=== PATIENT | male | born 1990 | race Hispanic/Latino ===

== ENCOUNTER 2019-06-10 11:47 | Emergency (ER) | payer BC ==
[2019-06-10 13:21] LABS: Protime INR 1.12
--- NOTE | 2019-06-10 13:27 | RAD REPORT ---
EXAM DESCRIPTION: Lai Single View06/10/2019 1:15 pm CLINICAL HISTORY: Chest pain COMPARISON: none FINDINGS: The lungs appear clear of acute infiltrate. The heart is normal size IMPRESSION: No acute abnormalities displayed
[2019-06-10 13:46] LABS: ALT/SGPT 21 U/L (12-78); AST/SGOT 12 U/L (15-37); Albumin 4.1 g/dL (3.4-5.0); Alkaline Phosphatase 100 U/L (45-117); BUN Blood Urea Nitrogen 18 mg/dL (7-18); Bicarbonate 30 mmol/L (21-32); Bilirubin Direct 0.1 mg/dL (0-0.2); Bilirubin Total 0.4 mg/dL (0.2-1.0); Glucose Level 90 mg/dL (74-106); Magnesium 2.1 mg/dL (1.8-2.4); Potassium 4.1 mmol/L (3.5-5.1); Protein, Total 7.3 g/dL (6.4-8.2); Sodium Level 140 mmol/L (136-145); Troponin (Emerg Dept Use Only) < 0.02 ng/mL (0.0-0.045)
[2019-06-10 13:47] LABS: NT PRO-BNP < 5 pg/mL (<125)
[2019-06-10 14:09] LABS: Absolute Lymphocytes (CBC) 1.5 K/uL (0.7-4.9); Hematocrit 44.1 % (39.6-49.0); Lymphocytes % 30.6 % (15.3-44.8); MPV 8.9 fL (7.6-11.3); RBC Red Blood Cell Count 4.96 M/uL (4.33-5.43)
--- NOTE | 2019-06-10 14:50 | ER ---
Nurse's Notes [facility] Name: Galo Pérez Age: 28 yrs Sex: Male : 1990 Arrival Date: 06/10/2019 Time: 11:48 Bed 18 Private MD: Diagnosis: Chest pain, unspecified;Palpitations Presentation: 06/10 12:08 Presenting complaint: Patient states: left sided chest pain for the last few weeks, la1 worst after eating, had ECG this morning in [place] and they said it looked abnormal and to come here. Transition of care: patient was not received from another setting of care. Onset of symptoms was June 10, 2019. Risk Assessment: Do you want to hurt yourself or someone else? Patient reports no desire to harm self or others. Initial Sepsis Screen: Does the patient meet any 2 criteria? No. Patient's initial sepsis screen is negative. Does the patient have a suspected source of infection? No. Patient's initial sepsis screen is negative. Care prior to arrival: None. 12:08 Method Of Arrival: Ambulatory la1 12:08 Acuity: WINST[place] 3 la1 Triage Assessment: 12:10 General: Appears in no apparent distress. comfortable, Behavior is calm, cooperative, bp appropriate for age. Pain: Denies pain. EENT: No deficits noted. Neuro: No deficits noted. Cardiovascular: Rhythm is sinus rhythm. Respiratory: No deficits noted. GI: No signs and/or symptoms were reported involving the gastrointestinal system. : No signs and/or symptoms were reported regarding the genitourinary system. Derm: No deficits noted. Musculoskeletal: No deficits noted. Historical: - Allergies: 12:09 No Known Allergies; la1 - PMHx: 12:09 None; la1 - Immunization history:: Adult Immunizations up to date. - Social history:: Smoking status: Patient/guardian denies using tobacco. - Ebola Screening: : No symptoms or risks identified at this time. Screenin:06 Abuse screen: Denies threats or abuse. Denies injuries from another. Nutritional bp screening: No deficits noted. Tuberculosis screening: No symptoms or risk factors identified. Fall Risk None identified. Assessment: 12:10 General: SEE TRIAGE NOTE. Pain: Denies pain. bp 13:30 Reassessment: ALL CURRENT ORDERS COMPLETED, RESULTS PENDING. PT ASYMPTOMATIC. bp 15:19 Reassessment: PT D/C HOME AMBULATORY, DX WITH PALPITATIONS. bp Vital Signs: 12:09 BP 134 / 74; Pulse 65; Resp 16; Temp 98.1; Pulse Ox 100% on R/A; Weight 81.65 kg; la1 Height 6 ft. (182.88 cm); 13:00 BP 121 / 83; Pulse 64; Resp 16; Pulse Ox 100% ; bp 14:00 BP 121 / 80; Pulse 64; Resp 16; Pulse Ox 100% ; bp 15:00 BP 118 / 80; Pulse 66; Resp 16; Temp 98.1; Pulse Ox 100% ; bp 12:09 Body Mass Index 24.41 (81.65 kg, 182.88 cm) la1 ED Course: 11:48 Patient arrived in ED. as 12:09 Triage completed. la1 12:09 Arm band placed on left wrist. la1 12:15 Donavon Carias, RN is Primary Nurse. bp 12:26 Catalino Oquendo PA is PHCP. [facility] 12:26 Remberto Singleton MD is Attending Physician. [facility] 13:05 Inserted saline lock: 20 gauge in right antecubital area, using aseptic technique. bp Blood collected. 13:06 Patient has correct armband on for positive identification. Bed in low position. Call bp light in reach. Side rails up X2. 13:14 X-ray completed. Portable x-ray completed in exam room. Patient tolerated procedure 1 well. 13:15 XRAY Chest (1 view) In Process Unspecified. EDMS 15:20 No provider procedures requiring assistance completed. IV discontinued, intact, bp bleeding controlled, No redness/swelling at site. Pressure dressing applied. Administered Medications: No medications were administered Outcome: 14:49 Discharge ordered by . johnson 15:20 Discharged to home ambulatory. bp 15:20 Condition: stable 15:20 Discharge instructions given to patient, Instructed on discharge instructions, follow up and referral plans. Demonstrated understanding of instructions, follow-up care. 15:21 Patient left the ED. bp Signatures: Dispatcher [employer] EDMS Catalino Oquendo PA PA jmm Harvey, Martha 1 Margie Salas Lee, RN RN [facility] Donavon Carias, ARINA RN bp
--- NOTE | 2019-06-10 14:51 | EDPHYS ---
Physician Documentation [facility] Name: Galo Pérez Age: 28 yrs Sex: Male : 1990 Arrival Date: 06/10/2019 Time: 11:48 Bed 18 Private MD: ED Physician Remberto Singleton HPI: 06/10 12:53 This 28 yrs old Male presents to ER via Ambulatory with complaints of Abnormal jmm EKG. 12:53 The patient or guardian reports chest pain that is located primarily in the substernal jmm area. The pain does not radiate. Associated signs and symptoms: Pertinent positives: shortness of breath. Associated signs and symptoms: Pertinent positives:. The chest pain is described as aching. Duration: The patient or guardian reports multiple episodes. Modifying factors: the symptoms are aggravated by eating. This is a 28 year old male with n ochronic medical conditions that presents to the ED with complaints of left sided chest pain which has been ongoing for approx 3 weeks. Patient states symptoms are worsened with eating. Patient states last night symptoms were worse. Patient was evaluated in clinic with concerns due to abnormal ekg. Denies abdominal pain. Historical: - Allergies: 12:09 No Known Allergies; la1 - PMHx: 12:09 None; la1 - Immunization history:: Adult Immunizations up to date. - Social history:: Smoking status: Patient/guardian denies using tobacco. - Ebola Screening: : No symptoms or risks identified at this time. ROS: 12:53 Constitutional: Negative for fever, chills, and weight loss, Abdomen/GI: Negative for jmm abdominal pain, nausea, vomiting, diarrhea, and constipation. 12:53 Cardiovascular: Positive for chest pain. 12:53 Respiratory: Positive for shortness of breath. 12:53 All other systems are negative. Exam: 12:53 Constitutional: This is a well developed, well nourished patient who is awake, alert, jmm and in no acute distress. Head/Face: atraumatic. Eyes: EOMI, no conjunctival erythema appreciated ENT: Moist Mucus Membranes Neck: Trachea midline, Supple Chest/axilla: Normal chest wall appearance and motion. Cardiovascular: Regular rate and rhythm. No edema appreciated 12:53 Cardiovascular: Rate: normal, Rhythm: regular, Pulses: no pulse deficits are appreciated. 12:53 Respiratory: the patient does not display signs of respiratory distress, Respirations: normal, Breath sounds: are clear throughout. 12:53 Abdomen/GI: Inspection: abdomen appears normal, Bowel sounds: normal, Palpation: abdomen is soft and non-tender. 12:53 Musculoskeletal/extremity: ROM: intact in all extremities. 12:53 Skin: Appearance: Color: normal in color. 12:53 Neuro: Orientation: is normal, Mentation: is normal, Memory: is normal. 12:53 Psych: Behavior/mood is pleasant, cooperative. Vital Signs: 12:09 BP 134 / 74; Pulse 65; Resp 16; Temp 98.1; Pulse Ox 100% on R/A; Weight 81.65 kg; la1 Height 6 ft. (182.88 cm); 13:00 BP 121 / 83; Pulse 64; Resp 16; Pulse Ox 100% ; bp 14:00 BP 121 / 80; Pulse 64; Resp 16; Pulse Ox 100% ; bp 15:00 BP 118 / 80; Pulse 66; Resp 16; Temp 98.1; Pulse Ox 100% ; bp 12:09 Body Mass Index 24.41 (81.65 kg, 182.88 cm) la1 MDM: 12:42 Patient medically screened. [facility] 14:32 Data reviewed: vital signs, nurses notes. Counseling: I had a detailed discussion with johnson the patient and/or guardian regarding: the historical points, exam findings, and any diagnostic results supporting the discharge/admit diagnosis, lab results, radiology results, the need for outpatient follow up, to return to the emergency department if symptoms worsen or persist or if there are any questions or concerns that arise at home. ED course: HEART SCORE = 0, PERC SCORE = NEGATIVE. . 06/10 12:49 Order name: Basic Metabolic Panel; Complete Time: 13:51 [facility] 06/10 12:49 Order name: CBC with Diff; Complete Time: 14:11 [facility] 06/10 12:49 Order name: LFT's; Complete Time: 13:51 [facility] 06/10 12:49 Order name: Magnesium; Complete Time: 13:51 [facility] 06/10 12:49 Order name: NT PRO-BNP; Complete Time: 13:51 [facility] 06/10 12:49 Order name: PT-INR; Complete Time: 13:44 [facility] 06/10 12:49 Order name: Troponin (emerg Dept Use Only); Complete Time: 13:51 [facility] 06/10 12:49 Order name: XRAY Chest (1 view); Complete Time: 13:44 [facility] 06/10 12:49 Order name: EKG; Complete Time: 12:51 [facility] 06/10 12:49 Order name: Cardiac monitoring; Complete Time: 13:05 [facility] 06/10 12:49 Order name: EKG - Nurse/Tech; Complete Time: 12:50 [facility] 06/10 12:49 Order name: IV Saline Lock; Complete Time: 13:05 [facility] 06/10 12:49 Order name: Labs collected and sent; Complete Time: 13:05 [facility] 06/10 12:49 Order name: O2 Per Protocol; Complete Time: 12:51 [facility] 06/10 12:49 Order name: O2 Sat Monitoring; Complete Time: 12:51 [facility] Administered Medications: No medications were administered Disposition: 06/11 07:04 Co-signature as Attending Physician, Remberto Singleton MD. rn Disposition: 06/10/19 14:49 Discharged to Home. Impression: Chest pain, unspecified, Palpitations. - Condition is Stable. - Discharge Instructions: Nonspecific Chest Pain, Palpitations. - Medication Reconciliation Form, Thank You Letter, Antibiotic Education, Prescription Opioid Use form. - Follow up: Private Physician; When: 2 - 3 days; Reason: Recheck today's complaints, Continuance of care, Re-evaluation by your physician. Signatures: Dispatcher [employer] EDMS Catalino Oquendo PA PA [facility] Remberto Singleton MD MD rn Attema, Lee, RN RN la1 Peltier, Brian, RN RN bp Corrections: (The following items were deleted from the chart) 06/10 15:21 14:49 06/10/2019 14:49 Discharged to Home. Impression: Chest pain, unspecified; bp Palpitations. Condition is Stable. Forms are Medication Reconciliation Form, Thank You Letter, Antibiotic Education, Prescription Opioid Use. Follow up: Private Physician; When: 2 - 3 days; Reason: Recheck today's complaints, Continuance of care, Re-evaluation by your physician. [facility]
--- NOTE | 2019-06-10 15:47 | EKG ---
Test Date: 2019-06-10 Test Time: 12:22:22 Electrical Manufacturing Technician: MARIELA MEASUREMENT RESULTS: Intervals: Rate: 64 AR: 150 QRSD: 94 QT: 378 QTc: 389 [place]: P: 45 AR: 150 QRS: 41 T: 28 INTERPRETIVE STATEMENTS: Normal sinus rhythm Normal ECG No previous ECG available for comparison Electronically Signed On 06-10-19 15:47:05 CDT by Mario Hernandez
== END 2019-06-10 15:21 | disposition home or self-care (01) ==
LOC: ER 11:47
DX: R00.2 Palpitations (principal); R07.9 Chest pain, unspecified
CPT/HCPCS: 36415; 71045; 80048; 80076; 83735; 83880; 84484; 85025; 85610; 93005; 99284